=== PATIENT | male | born 1945 | race Caucasian/White ===

== ENCOUNTER 2024-01-19 23:10 | Inpatient (IN) | payer OTHER ==
[2024-01-20 00:11] LABS: #Basophils 0.03 10x3/uL (0.0-0.2); #Monocytes 0.84 10x3/uL (0.0-1.1); #Neutrophils 8.75 10x3/uL (1.5-8.4); %Basophils 0.3 % (0.0-2.0); %Lymphocytes 7.2 % (18.0-47.0); %Neutrophils 83.1 % (40.0-75.0); Hematocrit 23.7 % (38.8-50.0); Hemoglobin 6.9 g/dL (13.5-17.5); Mean Corpuscular HGB CONC 29.1 g/dL (32.0-36.0); Mean Corpuscular Hemoglobin 22.3 pg (27.0-33.0); Mean Corpuscular Volume 76.7 fL (81.2-95.1); Mean Platelet Volume 10.1 fL (7.4-10.4); Platelet Count 298 10x3/uL (150-450); RBC Distribution Width 21.5 % (11.5-14.5); Red Blood Cell (RBC) Count 3.09 10x6/uL (4.32-5.72); White Blood Cell (WBC) Count 10.5 10x3/uL (3.5-10.5)
[2024-01-20 00:22] LABS: ALT (SGPT) 14 U/L (8-55); AST (SGOT) 12 U/L (5-34); Albumin 2.6 g/dL (3.4-4.8); Alkaline Phosphatase 80 U/L (40-110); Anion Gap 14 mmol/L (10-20); BUN (Urea Nitrogen) 26 mg/dL (8.4-25.7); Bilirubin, Total 0.5 mg/dL (0.2-1.2); Calc. Creatinine Clearance 0 mL/min (70-130); Calcium 7.4 mg/dL (7.8-10.44); Carbon Dioxide 19 mmol/L (23-31); Chloride 111 mmol/L (98-107); Estimated GFR 57; Globulin 2.6 g/dL (2.4-3.5); Glucose 114 mg/dL (83-110); Potassium 3.2 mmol/L (3.5-5.1); Protein, Total 5.2 g/dL (5.8-8.1); Sodium 141 mmol/L (136-145)
[2024-01-20 00:24] LABS: Troponin I 0.042 ng/mL (< 0.028)
[2024-01-20] MEDS ORDERED: Aspirin Chewable 81 MG TAB ONE (00:56)
[2024-01-20] MEDS ORDERED: Furosemide 40 MG (4 mL) VIAL ONE (00:56)
[2024-01-20] MEDS ORDERED: Potassium Chloride 20 MEQ TAB ONE (00:56)
[2024-01-20] MEDS ORDERED: Nitroglycerin 2% Ointment 1 INCH/1 GM Packet ONE (00:56)
[2024-01-20 03:34] LABS: Troponin I 0.052 ng/mL (< 0.028)
[2024-01-20 05:57] LABS: Hematocrit 24.7 % (38.8-50.0); Hemoglobin 6.9 g/dL (13.5-17.5); Platelet Count 316 10x3/uL (150-450)
[2024-01-20 10:21] VITALS: BMI 33.4
[2024-01-20 10:25] LABS: INR-International Normal Ratio 1.6; PTT 38.7 sec (22.0-33.0); Prothrombin Time 16.7 sec (9.5-12.1)
[2024-01-20 10:36] LABS: Troponin I 0.078 ng/mL (< 0.028)
[2024-01-20 10:49] LABS: Magnesium 2.3 mg/dL (1.6-2.6)
[2024-01-20] MEDS: Carvedilol 6.25 MG TAB PO SCH (11:00)
[2024-01-20] MEDS: Amiodarone 200 MG TAB PO SCH (11:00)
[2024-01-20] MEDS: Pantoprazole DR 40 MG TAB PO SCH (11:00)
[2024-01-20] MEDS: Losartan 50 MG TAB PO SCH (11:00)
[2024-01-20] MEDS: Isosorbide Mononitrate 30 MG ER.TAB PO SCH (11:00)
[2024-01-20] MEDS: Ferrous Sulfate 325 MG TAB PO SCH (11:02)
[2024-01-20 11:10] LABS: Ferritin 65.08 ng/mL (22-322); Thyroid Stimulating Hormone 0.0146 uIU/mL (0.35-4.94)
[2024-01-20 11:38] LABS: Iron 16 ug/dL (65-175); Iron Binding Capacity, Total 208 mcg/dL (261-462)
[2024-01-20] MEDS: Furosemide 40 MG (4 mL) VIAL SLOW IVP SCH (13:30)
[2024-01-20] MEDS: Potassium Chloride 20 MEQ TAB PO SCH (16:33)
[2024-01-20] MEDS: Atorvastatin Calcium 40 MG TAB PO SCH (21:06)
[2024-01-21 05:22] LABS: #Basophils 0.04 10x3/uL (0.0-0.2); #Eosinphils 0.03 10x3/uL (0.0-0.5); #Monocytes 0.86 10x3/uL (0.0-1.1); #Neutrophils 7.78 10x3/uL (1.5-8.4); %Basophils 0.4 % (0.0-2.0); %Eosinophils 0.3 % (0.0-6.0); %Lymphocytes 7.8 % (18.0-47.0); %Monocytes 9.1 % (0.0-10.0); %Neutrophils 82.1 % (40.0-75.0); Hematocrit 24.1 % (38.8-50.0); Hemoglobin 6.9 g/dL (13.5-17.5); Mean Corpuscular HGB CONC 28.6 g/dL (32.0-36.0); Mean Corpuscular Hemoglobin 22.4 pg (27.0-33.0); Mean Corpuscular Volume 78.2 fL (81.2-95.1); Mean Platelet Volume 10.1 fL (7.4-10.4); Platelet Count 292 10x3/uL (150-450); RBC Distribution Width 22.2 % (11.5-14.5); Red Blood Cell (RBC) Count 3.08 10x6/uL (4.32-5.72); White Blood Cell (WBC) Count 9.5 10x3/uL (3.5-10.5)
[2024-01-21 05:26] LABS: Anion Gap 14 mmol/L (10-20); BUN (Urea Nitrogen) 21 mg/dL (8.4-25.7); Calc. Creatinine Clearance 88 mL/min (70-130); Calcium 7.7 mg/dL (7.8-10.44); Carbon Dioxide 20 mmol/L (23-31); Chloride 113 mmol/L (98-107); Estimated GFR 69; Glucose 108 mg/dL (83-110); Potassium 3.5 mmol/L (3.5-5.1); Sodium 143 mmol/L (136-145)
[2024-01-21] MEDS: Aspirin 81 mg Enteric Coated Tablet PO SCH (08:30)
[2024-01-21] MEDS: Albumin 25% 25 GM (100 mL) BOT IVPB SCH ×2 (10:27→10:32)
[2024-01-21] MEDS: Acetaminophen 325 MG TAB PO PRN (12:04)
[2024-01-21] MEDS: methylPREDNISolone Sod Succ/PF 125 MG/2 ML VIAL IVP SCH ×2 (12:42→17:25)
[2024-01-21 12:49] LABS: Free T4 (Free Thyroxine) Greater than 5.00 ng/dL (0.70-1.48)
[2024-01-21] MEDS: Ipratropium/Albuterol 3 ML NEB NEB SCH ×2 (12:52→15:23)
[2024-01-21] MEDS: VANCOMYCIN 2 GRAM/400 ML BAG 2 GM in Premix 1 BAG IVPB SCH (15:58)
[2024-01-21] MEDS ORDERED: SODIUM CHLORIDE 0.9% IVPB SCH (16:00)
[2024-01-21] MEDS ORDERED: VANCOMYCIN IVPB SCH (16:00)
[2024-01-21] MEDS: Cefepime 2 GM in Sodium Chloride 0.9% 100 ML IVPB SCH (16:06)
[2024-01-21] MEDS: Ferrous Sulfate 325 MG TAB PO SCH (16:13)
[2024-01-21] MEDS ORDERED: VANCOMYCIN 2 GRAM/400 ML BAG 2 GM in Premix 1 BAG IVPB SCH (18:00)
[2024-01-21] MEDS: dilTIAZem 25 MG/5 ML VIAL ONE (18:30)
[2024-01-21] MEDS: Furosemide 40 MG (4 mL) VIAL ONE (18:30)
[2024-01-21] MEDS ORDERED: Ipratropium/Albuterol 3 ML NEB NEB SCH (19:00)
[2024-01-21 19:24] LABS: ALV-art Gradient 473.925 mmHg (0-20); Actual Bicarbonate (HCO3a) 20.2 mEq/L (22-28); Analyzer IN Cardio CS ICU; Base Excess (BEa) -3.8 mEq/L (-2.0 to +3.0); CO2 Tension 32.7 mmHg (35.0-45.0); Calcium, Ionized (arterial) 1.08 mmol/L (1.12-1.30); Carboxyhemoglobin (COHb) 0.9 gm% (0.0-3.0); Critical Notified By: CP.PH; Hematocrit-ABG 29 % (42.0-52.0); Hemoglobin (Hb) 9.8 g/dL (14.0-18.0); O2 Tension (PaO2), arterial 198.2 mmHg (> 70.0); Potassium - ABG Lab 3.87 mmol/L (3.70-5.30); Puncture Site RRA; pH, Arterial 7.408 (7.35-7.45)
[2024-01-21] MEDS: Terazosin HCl 1 MG CAP PO SCH (21:39)
[2024-01-22] MEDS: Vancomycin 1 GM in Sodium Chloride 0.9% 250 ML 250 ML IVPB SCH (02:04)
[2024-01-22 03:47] LABS: Bilirubin Neg (Negative); Blood, Urine 10 (Negative); Clarity Clear (Clear); Glucose, Urine (Dipstick) Normal (Negative); Ketone, Urine 15 mg/dL (Negative); Leukocyte Negative (Negative); Nitrite Negative (Negative); Protein, Urine (Dipstick) 30 mg/dl (Neg-Trace); Specific Gravity, Urine 1.015 (1.005-1.030); Urobilinogen Normal mg/dL (Less than 2)
[2024-01-22 03:56] LABS: Bacteria/HPF Rare-Few HPF (None Seen); CAUTI Indications for Culture Dysuria,urgency,freq; RBC/HPF 0-3 HPF (0-3); Squamous Epithelial 0-3 HPF (0-3); WBC/HPF 0-3 HPF (0-3)
[2024-01-22 03:57] LABS: Urine Culture Reflex No No
[2024-01-22 05:44] LABS: #Monocytes 0.11 10x3/uL (0.0-1.1); #Neutrophils 6.48 10x3/uL (1.5-8.4); %Lymphocytes 3.9 % (18.0-47.0); %Monocytes 1.6 % (0.0-10.0); %Neutrophils 93.9 % (40.0-75.0); Hematocrit 26.4 % (38.8-50.0); Hemoglobin 7.9 g/dL (13.5-17.5); Mean Corpuscular HGB CONC 29.9 g/dL (32.0-36.0); Mean Corpuscular Hemoglobin 23.4 pg (27.0-33.0); Mean Corpuscular Volume 78.3 fL (81.2-95.1); Mean Platelet Volume 10.1 fL (7.4-10.4); Platelet Count 242 10x3/uL (150-450); RBC Distribution Width 21.5 % (11.5-14.5); Red Blood Cell (RBC) Count 3.37 10x6/uL (4.32-5.72); White Blood Cell (WBC) Count 6.9 10x3/uL (3.5-10.5)
[2024-01-22 06:00] LABS: Vancomycin, Random 17.4 ug/mL (See Comment)
[2024-01-22 06:02] LABS: ALT (SGPT) 31 U/L (8-55); AST (SGOT) 31 U/L (5-34); Alkaline Phosphatase 66 U/L (40-110); Anion Gap 15 mmol/L (10-20); BUN (Urea Nitrogen) 25 mg/dL (8.4-25.7); Bilirubin, Total 0.7 mg/dL (0.2-1.2); Calc. Creatinine Clearance 85 mL/min (70-130); Calcium 8.2 mg/dL (7.8-10.44); Carbon Dioxide 20 mmol/L (23-31); Chloride 113 mmol/L (98-107); Estimated GFR 68; Globulin 2.9 g/dL (2.4-3.5); Glucose 180 mg/dL (83-110); Potassium 3.9 mmol/L (3.5-5.1); Protein, Total 5.9 g/dL (5.8-8.1); Sodium 144 mmol/L (136-145)
[2024-01-22] MEDS: Furosemide 40 MG (4 mL) VIAL SLOW IVP SCH (10:07)
[2024-01-22] MEDS: methylPREDNISolone Sod Succ 40 MG VIAL IVP SCH (14:11)
[2024-01-22] MEDS: Sodium Ferric Gluconate 250 MG in Sodium Chloride 0.9% 250 ML 250 ML IVPB SCH (16:30)
[2024-01-23 07:30] LABS: Hematocrit 25.9 % (38.8-50.0); Hemoglobin 7.6 g/dL (13.5-17.5)
[2024-01-23 09:46] LABS: Anion Gap 15 mmol/L (10-20); BUN (Urea Nitrogen) 36 mg/dL (8.4-25.7); Calc. Creatinine Clearance 76 mL/min (70-130); Calcium 8.3 mg/dL (7.6-10.4); Carbon Dioxide 23 mmol/L (23-31); Chloride 113 mmol/L (98-107); Estimated GFR 60; Glucose 166 mg/dL (83-110); Potassium 3.5 mmol/L (3.5-5.1); Sodium 147 mmol/L (136-145)
[2024-01-23 09:56] LABS: Troponin I 0.104 ng/mL (< 0.028)
[2024-01-23] MEDS: Furosemide 40 MG (4 mL) VIAL SLOW IVP SCH (13:20)
[2024-01-23] MEDS: Potassium Chloride 20 MEQ TAB PO SCH (13:21)
[2024-01-23] MEDS: Sodium Ferric Gluconate 250 MG in Sodium Chloride 0.9% 250 ML 250 ML IVPB SCH (15:10)
[2024-01-24 04:38] LABS: Hematocrit 26.8 % (38.8-50.0)
[2024-01-24 05:01] LABS: Anion Gap 13 mmol/L (10-20); BUN (Urea Nitrogen) 54 mg/dL (8.4-25.7); Calc. Creatinine Clearance 63 mL/min (70-130); Carbon Dioxide 22 mmol/L (23-31); Chloride 113 mmol/L (98-107); Estimated GFR 48; Glucose 158 mg/dL (83-110); Potassium 4.2 mmol/L (3.5-5.1); Sodium 144 mmol/L (136-145)
[2024-01-24 05:20] LABS: Vancomycin, Random 41.4 ug/mL (See Comment)
[2024-01-24] MEDS: Spironolactone 25 MG TAB PO SCH (10:15)
[2024-01-24] MEDS ORDERED: Vancomycin 1 GM in Sodium Chloride 0.9% 250 ML 250 ML IVPB SCH (14:00)
[2024-01-24] MEDS: methylPREDNISolone Sod Succ 40 MG VIAL IVP SCH (17:23)
[2024-01-25 04:27] LABS: Hematocrit 27.6 % (38.8-50.0)
[2024-01-25 04:38] LABS: Anion Gap 12 mmol/L (10-20); BUN (Urea Nitrogen) 64 mg/dL (8.4-25.7); Calc. Creatinine Clearance 63 mL/min (70-130); Calcium 8.3 mg/dL (7.8-10.44); Carbon Dioxide 24 mmol/L (23-31); Chloride 112 mmol/L (98-107); Estimated GFR 48; Glucose 148 mg/dL (83-110); Potassium 4.3 mmol/L (3.5-5.1); Sodium 144 mmol/L (136-145)
[2024-01-25] MEDS: Cefdinir 300 MG CAP PO SCH (08:46)
[2024-01-25] MEDS: predniSONE 20 MG TAB PO SCH (08:46)
[2024-01-25] MEDS: Spironolactone 25 MG TAB PO SCH (08:46)
[2024-01-25] MEDS: Albumin 25% 25 GM (100 mL) BOT IVPB SCH ×2 (08:47→15:15)
[2024-01-25] MEDS ORDERED: Cefdinir 300 MG CAP PO SCH (09:00)
[2024-01-25] MEDS: Empagliflozin 10 MG TAB PO SCH (16:05)
[2024-01-25] MEDS ORDERED: Rivaroxaban 10 MG TAB PO SCH (17:00)
[2024-01-26 03:53] LABS: Anion Gap 18 mmol/L (10-20); BUN (Urea Nitrogen) 72 mg/dL (8.4-25.7); Calc. Creatinine Clearance 62 mL/min (70-130); Calcium 8.6 mg/dL (7.8-10.44); Carbon Dioxide 20 mmol/L (23-31); Chloride 112 mmol/L (98-107); Estimated GFR 47; Glucose 128 mg/dL (83-110); Potassium 3.7 mmol/L (3.5-5.1); Sodium 146 mmol/L (136-145)
[2024-01-26 04:12] LABS: Hemoglobin 8.1 g/dL (13.5-17.5); Mean Corpuscular HGB CONC 28.9 g/dL (32.0-36.0); Mean Corpuscular Hemoglobin 23.8 pg (27.0-33.0); Mean Corpuscular Volume 82.4 fL (81.2-95.1); Mean Platelet Volume 10.4 fL (7.4-10.4); Platelet Count 198 10x3/uL (150-450)
[2024-01-26] MEDS ORDERED: Furosemide 40 MG (4 mL) VIAL SLOW IVP SCH ×2 (09:00)
[2024-01-26] MEDS: Furosemide 40 MG (4 mL) VIAL SLOW IVP SCH ×2 (09:32→13:12)
[2024-01-26] MEDS: Losartan 50 MG TAB PO SCH (10:15)
[2024-01-26] MEDS: Aspirin 81 mg Enteric Coated Tablet PO SCH (10:16)
[2024-01-26 10:17] LABS: ALV-art Gradient 598.375 mmHg (0-20); Analyzer IN Cardio CS ER; Base Excess (BEa) 1.8 mEq/L (-2.0 to +3.0); CO2 Tension 33.7 mmHg (35.0-45.0); Calcium, Ionized (arterial) 1.12 mmol/L (1.12-1.30); Carboxyhemoglobin (COHb) 0.3 gm% (0.0-3.0); Critical Notified By: T. CROSS RRT; Critical Notified Whom: COCHA; Hematocrit-ABG 28 % (42.0-52.0); Hemoglobin (Hb) 9.5 g/dL (14.0-18.0); O2 Tension (PaO2), arterial 72.5 mmHg (> 70.0); Potassium - ABG Lab 3.45 mmol/L (3.70-5.30); Puncture Site RBA; pH, Arterial 7.488 (7.35-7.45)
[2024-01-26] MEDS: Empagliflozin 10 MG TAB PO SCH (10:17)
[2024-01-26] MEDS: Enoxaparin 40 MG (0.4 mL) SYRINGE SC SCH (10:52)
[2024-01-26 12:16] VITALS: BP 153/48; TEMP 97.8
[2024-01-26] MEDS: Albumin 25% 25 GM (100 mL) BOT IVPB SCH (13:10)
[2024-01-26] MEDS ORDERED: Cefepime 2 GM in Sodium Chloride 0.9% 100 ML IVPB SCH ×2 (15:00→21:00)
[2024-01-26] MEDS ORDERED: methylPREDNISolone Sod Succ 40 MG VIAL IVP SCH (15:00)
[2024-01-26 16:09] LABS: Lactic Acid 2.3 mmol/L (0.5-2.2)
[2024-01-26 16:21] LABS: Troponin I 0.132 ng/mL (< 0.028)
[2024-01-26] MEDS ORDERED: Vancomycin 1 GM in Sodium Chloride 0.9% 250 ML 250 ML IVPB SCH (21:00)
[2024-01-27] MEDS ORDERED: Furosemide 40 MG TAB PO SCH (07:30)
[2024-01-27] MEDS ORDERED: Enoxaparin 40 MG (0.4 mL) SYRINGE SC SCH (09:00)
== END 2024-01-26 15:28 | disposition still patient (30) | DRG 291 ==
LOC: CSHERS 23:10 → EEVIPCON 01-20 02:52 → CSHERHOLD 01-20 02:52 → CSHTELE 01-20 10:14
PROVIDERS: ADMIT Family Medicine; ATTEND Family Medicine
PROC: 30243N1 Transfusion of Nonautologous Red Blood Cells into Central Vein, Percutaneous Approach (ICD-10-PCS; principal; 2024-01-21)
DX: I13.0 Hypertensive heart and chronic kidney disease with heart failure and stage 1 through stage 4 chronic kidney disease, or unspecified chronic kidney disease (principal); I50.33 Acute on chronic diastolic (congestive) heart failure; J96.01 Acute respiratory failure with hypoxia; I24.89 Other forms of acute ischemic heart disease; D62 Acute posthemorrhagic anemia; N18.4 Chronic kidney disease, stage 4 (severe); D50.9 Iron deficiency anemia, unspecified; Z66 Do not resuscitate; I48.0 Paroxysmal atrial fibrillation; I25.10 Atherosclerotic heart disease of native coronary artery without angina pectoris; K21.9 Gastro-esophageal reflux disease without esophagitis; N40.0 Benign prostatic hyperplasia without lower urinary tract symptoms; E87.6 Hypokalemia; J44.9 Chronic obstructive pulmonary disease, unspecified; Z95.1 Presence of aortocoronary bypass graft; Z95.2 Presence of prosthetic heart valve; Z85.828 Personal history of other malignant neoplasm of skin; Z87.891 Personal history of nicotine dependence; Z79.01 Long term (current) use of anticoagulants
CPT/HCPCS: 36415; 36416; 36430; 36600; 71045; 71260; 74177; 80048; 80053; 80202; 81001; 82274; 82728; 82805; 83540; 83550; 83605; 83735; 83880; 84145; 84439; 84443; 84481; 84484; 85014; 85018; 85025; 85027; 85049; 85610; 85730; 86850; 86900; 86901; 87081; 93005; 93010; 93306; 94640; 94660; 94760; 94762; 96374; J0692; J1650; J1940; J2916; J2920; J2930; J3370; J3490; J7050; J7512; J7620; P9016; P9047